=== PATIENT | female | born 1995 | race African-American/Black ===

== ENCOUNTER 2018-06-16 22:16 | Emergency (ER) | payer MEDICAID ==
[~2018-06-16] VITALS: Ht 160 cm; Wt 77.1 kg
[2018-06-16 22:30] VITALS: BP 138/69
[2018-06-16] MEDS ORDERED: DICL50TA4 PO (22:33)
[2018-06-16] MEDS ORDERED: AMOX500T PO (22:33)
--- NOTE | 2018-06-16 22:34 | PHYS DOC ---
Adult General Chief Complaint Chief Complaint: DENTAL PROBLEM HPI HPI 22-year-old female presents for evaluation of right maxillary molar pain for the last 2-3 days. She denies fever. States does not have a dentist. She has been taking Tylenol without relief. Review of Systems Review of Systems Constitutional: Denies fever or chills [] Eyes: Denies change in visual acuity, redness, or eye pain [] HENT: Denies nasal congestion or sore throat [] All other systems were reviewed and found to be within normal limits, except as documented in this note. Allergies Allergies Allergies Coded Allergies Type Severity Reaction Last Updated Verified No Known Drug Allergies 06/17/18 No Physical Exam Physical Exam Constitutional: Well developed, well nourished, no acute distress, non-toxic appearance. [] HENT: Normocephalic, atraumatic, bilateral external ears normal, oropharynx moist, no oral exudates, nose normal, right maxillary molar tender to percussion. [] Neck: Normal range of motion, no tenderness, supple, no stridor. [] Skin: Warm, dry, no erythema, no rash. [] Neurologic: Alert and oriented X 3, normal motor function, normal sensory function, no focal deficits noted. [] Psychologic: Affect normal, judgement normal, mood normal. [] Current Patient Data Vital Signs Vital Signs Date Time Temp Pulse Resp B/P (MAP) Pulse Ox O2 Delivery O2 Flow Rate FiO2 06/16/18 22:30 98.4 96 18 138/69 (92) 98 Room Air 98.4 EKG EKG [] Radiology/Procedures Radiology/Procedures [] Course & Med Decision Making Course & Med Decision Making Discussed with patient importance of follow-up with dentist. We'll start her on anti-inflammatories and antibiotics. Return to ER for new or worsening symptoms. Dragon Disclaimer Dragon Disclaimer This electronic medical record was generated, in whole or in part, using a voice recognition dictation system. Departure Departure Impression: Primary Impression: Toothache Disposition: 01 HOME, SELF-CARE Condition: STABLE Patient Instructions: Toothache-Brief Scripts Diclofenac Sodium (DICLOFENAC SODIUM) 50 Mg Tablet. 50 MG PO BID PRN for PAIN, #20 TAB 0 Refills Prov: LUIS LALA [employer] 06/16/18 Amoxicillin (AMOXICILLIN) 500 Mg Tablet 500 MG PO TID for 10 Days, #30 TAB 0 Refills Prov: LUIS LALA APRN 06/16/18 Attending Signature Attending Signature I have reviewed the PA/GREASE REMOVER's note and plan of care. I was available for consultation as needed during the patient's visit in the emergency department. I agree with the clinical impression, plan, and disposition. LUIS LALA APRN Jun 16, 2018 22:34 JOSE R QUEZADA DO Jun 20, 2018 05:49
== END 2018-06-16 22:40 | disposition home or self-care (01) ==
LOC: ER 22:16
DX: K08.89 Other specified disorders of teeth and supporting structures (principal)
CPT/HCPCS: 99283